=== PATIENT | female | born 1945 | race Caucasian/White ===

== ENCOUNTER 2016-12-27 01:24 | Inpatient (IN) ==
[2016-12-27 02:10] LABS: MANUAL DIFF NEEDED? NO
[2016-12-27 02:13] LABS: BASO% 0.1 % (0.0-0.8); HEMATOCRIT 45.7 % (37.0-47.0); HEMOGLOBIN 15.4 g/dL (12.0-16.0); LYMPH# 2.24 X1000 (1.2-3.4); LYMPH% 23.4 % (20.5-51.1); MCHC 33.7 g/dL (33-37); MCV 92.1 FL (81-99); MONO# 0.69 X1000 (0.11-0.59); MONO% 7.2 % (1.7-9.3); MPV 10.1 FL (7.4-10.4); NEUT% 68.3 % (42.2-75.2); PLT 208 X1000 (130-400); RBC 4.96 XMIL (4.2-5.4)
[2016-12-27 02:28] LABS: AGAP 11; ALBUMIN 4.5 g/dL (3.5-5.0); ALKALINE PHOSPHATASE 114 U/L (32-104); AMYLASE 67 U/L (20-200); BUN 11 mg/dL (8-22); CALCIUM 11.1 mg/dL (8.8-10.2); CHLORIDE 100 mmol/L (98-107); COSMO 273; GOT 24 U/L (10-30); GPT 12 U/L (10-36); LIPASE 23 U/L (13-60); SODIUM 136 mmol/L (136-145); TCO2 25 mmol/L (25-35); TOTAL BILIRUBIN 0.88 mg/dL (0.20-1.00); TOTAL PROTEIN 8.8 g/dL (6.3-8.3)
[2016-12-27] MEDS ORDERED: MORPHINE IV PRN (03:13)
[2016-12-27] MEDS ORDERED: ZOFRAN IV ONE (05:28)
[2016-12-27] MEDS ORDERED: MORPHINE IV ONE (05:28)
[2016-12-27 07:03] LABS: URINE CULTURE NEEDED? NO; URINE MICRO REVIEW NEEDED? NO; URINE SOURCE CLEAN CATCH
[2016-12-27 07:08] LABS: BILIRUBIN URINE NEGATIVE (NEGATIVE); BLOOD URINE NEGATIVE (NEGATIVE); COLOR BLUE; GLUCOSE URINE NEGATIVE (NEGATIVE); LEUKOCYTES URINE NEGATIVE (NEGATIVE); NITRITE URINE NEGATIVE (NEGATIVE); PH URINE 5.5; PROTEIN URINE TRACE mg/dL (NEGATIVE); TURBIDITY URINE CLEAR (CLEAR); UROBILINOGEN URINE NORMAL (NORMAL)
[2016-12-27 07:09] LABS: UR EPITHELIAL CELLS <10 /HPF (<10); URINE BACTERIA NEGATIVE /HPF; URINE RBC <10 /HPF (<10); URINE WBC <10 /HPF (<10)
[2016-12-27] MEDS ORDERED: NS 1,000 ML IV ONE ×2 (07:13→07:22)
[2016-12-27 07:31] LABS: SP GRAVITY URINE 1.015
[2016-12-27] MEDS ORDERED: PROTONIX IV SCH ×2 (08:01→08:15)
[2016-12-27] MEDS ORDERED: NS 500 ML IV ONE (08:01)
[2016-12-27] MEDS ORDERED: SODIUM CHLORIDE 0.9% INJ SCH (08:09)
[2016-12-27] MEDS: SODIUM CHLORIDE 0.9% INJ SCH (08:15)
[2016-12-27 08:39] LABS: HEMOGLOBIN A1C 4.9 % (4.8-6.0)
[2016-12-27] MEDS: MORPHINE IV PRN ×2 (10:05→19:47)
[2016-12-27] MEDS: ZOFRAN IV PRN (10:05)
[2016-12-27] MEDS: NS 1,000 ML IV SCH (18:04)
[2016-12-27] MEDS: SOLU-MEDROL IV SCH (19:47)
[2016-12-27] MEDS: PROTONIX IV SCH (19:47)
[2016-12-27] MEDS: FLAGYL 250 MG/NS 250 MG/50 ML IVPB IV SCH (19:47)
[2016-12-27] MEDS: LEVAQUIN 750 MG/D5W 750 MG/150 ML IVPB IV SCH (23:07)
[2016-12-28] MEDS: MORPHINE IV PRN ×3 (06:01→22:45)
[2016-12-28 06:02] LABS: MANUAL DIFF NEEDED? NO
[2016-12-28] MEDS: SOLU-MEDROL IV SCH ×4 (06:04→18:04)
[2016-12-28] MEDS: FLAGYL 250 MG/NS 250 MG/50 ML IVPB IV SCH ×4 (06:06→18:04)
[2016-12-28 06:10] LABS: HEMATOCRIT 38.7 % (37.0-47.0); HEMOGLOBIN 13.1 g/dL (12.0-16.0); LYMPH% 21.5 % (20.5-51.1); MCH 31.3 PG (27-31); MCHC 33.9 g/dL (33-37); MCV 92.6 FL (81-99); MONO# 0.07 X1000 (0.11-0.59); MPV 10.5 FL (7.4-10.4); NEUT% 75.5 % (42.2-75.2); PLT 165 X1000 (130-400); RBC 4.18 XMIL (4.2-5.4)
[2016-12-28 06:47] LABS: AGAP 10; ALBUMIN 3.5 g/dL (3.5-5.0); ALKALINE PHOSPHATASE 110 U/L (32-104); BUN 9 mg/dL (8-22); CALCIUM 9.3 mg/dL (8.8-10.2); CHLORIDE 100 mmol/L (98-107); COSMO 273; GOT 92 U/L (10-30); GPT 55 U/L (10-36); POTASSIUM 4.4 mmol/L (3.5-5.1); SODIUM 137 mmol/L (136-145); TCO2 27 mmol/L (25-35); TOTAL BILIRUBIN 1.35 mg/dL (0.20-1.00); TOTAL PROTEIN 6.8 g/dL (6.3-8.3)
[2016-12-28] MEDS: ZOFRAN IV PRN ×2 (09:55→22:45)
[2016-12-28] MEDS: PROTONIX IV SCH ×2 (09:56→21:33)
[2016-12-28] MEDS: SODIUM CHLORIDE 0.9% INJ SCH (09:56)
[2016-12-28] MEDS: NS 1,000 ML IV SCH ×2 (14:57→21:00)
[2016-12-28] MEDS: VALIUM PO PRN (17:16)
[2016-12-28] MEDS: LEVAQUIN 750 MG/D5W 750 MG/150 ML IVPB IV SCH (21:34)
[2016-12-29] MEDS ORDERED: ZOFRAN IV ONE (00:14)
[2016-12-29] MEDS: VALIUM PO PRN (00:32)
[2016-12-29] MEDS: SOLU-MEDROL IV SCH ×3 (00:32→12:25)
[2016-12-29] MEDS: FLAGYL 250 MG/NS 250 MG/50 ML IVPB IV SCH ×3 (00:32→12:25)
[2016-12-29 06:33] LABS: MANUAL DIFF NEEDED? NO
[2016-12-29 07:00] LABS: HEMATOCRIT 38.1 % (37.0-47.0); HEMOGLOBIN 12.8 g/dL (12.0-16.0); LYMPH# 0.65 X1000 (1.2-3.4); LYMPH% 11.4 % (20.5-51.1); MCH 30.8 PG (27-31); MCHC 33.6 g/dL (33-37); MCV 91.8 FL (81-99); MONO# 0.23 X1000 (0.11-0.59); MPV 10.1 FL (7.4-10.4); NEUT% 84.6 % (42.2-75.2); PLT 176 X1000 (130-400); RBC 4.15 XMIL (4.2-5.4)
[2016-12-29 07:15] LABS: AGAP 10; ALBUMIN 3.5 g/dL (3.5-5.0); ALKALINE PHOSPHATASE 97 U/L (32-104); BUN 11 mg/dL (8-22); CALCIUM 10.5 mg/dL (8.8-10.2); CHLORIDE 102 mmol/L (98-107); COSMO 278; GOT 34 U/L (10-30); GPT 33 U/L (10-36); POTASSIUM 4.4 mmol/L (3.5-5.1); SODIUM 139 mmol/L (136-145); TCO2 27 mmol/L (25-35); TOTAL BILIRUBIN 0.91 mg/dL (0.20-1.00); TOTAL PROTEIN 6.7 g/dL (6.3-8.3)
[2016-12-29] MEDS ORDERED: ZOFRAN IV PRN (08:30)
[2016-12-29] MEDS ORDERED: DULCOLAX PR ONE (09:00)
[2016-12-29] MEDS: COLCRYS PO SCH ×2 (09:35→23:00)
[2016-12-29] MEDS: PROTONIX IV SCH ×2 (09:35→23:00)
[2016-12-29] MEDS: SODIUM CHLORIDE 0.9% INJ SCH (09:36)
[2016-12-29] MEDS ORDERED: HALDOL IM PRN (18:42)
[2016-12-29] MEDS ORDERED: VALIUM IM ONE (19:33)
[2016-12-29] MEDS ORDERED: VALIUM IM PRN (20:28)
[2016-12-29] MEDS ORDERED: LEVAQUIN PO ONE (21:00)
[2016-12-29] MEDS ORDERED: PREDNISONE PO SCH (21:00)
[2016-12-29] MEDS ORDERED: LEVAQUIN PO SCH (21:00)
[2016-12-29] MEDS: FLAGYL PO SCH (23:01)
[2016-12-30] MEDS: FLAGYL PO SCH ×2 (05:43→15:33)
[2016-12-30] MEDS: MORPHINE IV PRN (08:25)
[2016-12-30] MEDS: COLCRYS PO SCH (08:25)
[2016-12-30] MEDS: PROTONIX IV SCH ×2 (08:25→08:30)
[2016-12-30] MEDS: SODIUM CHLORIDE 0.9% INJ SCH ×2 (08:25→08:30)
[2016-12-30] MEDS: VALIUM PO PRN (15:33)
[2016-12-30] MEDS: ENTOCORT EC PO SCH (18:43)
[2016-12-31] MEDS: PROTONIX IV SCH ×2 (03:35→09:32)
[2016-12-31] MEDS: FLAGYL PO SCH ×2 (03:35→05:19)
[2016-12-31] MEDS: COLCRYS PO SCH ×2 (03:35→09:32)
[2016-12-31] MEDS: LEVAQUIN PO SCH ×2 (03:36→09:33)
[2016-12-31 08:14] VITALS: BP 130/78
[2016-12-31] MEDS: SODIUM CHLORIDE 0.9% INJ SCH (09:32)
[2016-12-31] MEDS: ENTOCORT EC PO SCH (09:33)
[2016-12-31] MEDS: VALIUM PO PRN (09:33)
[2017-01-02 10:24] LABS: HEPATITIS PROFILE ACUTE SEE COMMENTS
== END 2016-12-31 10:40 | disposition home or self-care (01) ==
LOC: ED 01:24 → 4N 09:31
PROVIDERS: ATTEND Emergency Medicine